=== PATIENT | male | born 1960 | race African-American/Black ===

== ENCOUNTER 2018-07-31 10:52 | Emergency (ER) | payer MEDICAID, SELFPAY ==
[~2018-07-31] VITALS: Ht 175.3 cm; Wt 90.0 kg
[2018-07-31] MEDS ORDERED: TETANUS, DIPHTHERIA, PERTUSSIS VAC/PF 0.5ML (>7YR OLD) IM ONE (12:15)
[2018-07-31] MEDS ORDERED: KETOROLAC 60MG/2ML VIAL IM ONE (12:15)
[2018-07-31] MEDS ORDERED: BACITRACIN ZINC OINT UDPKT TOP ONE (13:45)
[2018-07-31] MEDS ORDERED: LIDOCAINE HCL/PF 1% 10 MG/ML 5ML VIAL IJ ONE (13:45)
[2018-07-31] MEDS ORDERED: SULBACTAM NA IM NR ×4 (14:00)
[2018-07-31] MEDS ORDERED: AMPICILLIN SODIUM IM NR ×4 (14:00)
[2018-07-31 15:15] VITALS: BP 143/87
== END 2018-07-31 15:17 | disposition home or self-care (01) ==
LOC: ER 10:52
DX: S62.632B Displaced fracture of distal phalanx of right middle finger, initial encounter for open fracture (principal); I10 Essential (primary) hypertension; T14.8XXA Other injury of unspecified body region, initial encounter; F17.200 Nicotine dependence, unspecified, uncomplicated; W50.3XXA Accidental bite by another person, initial encounter; Y93.89 Activity, other specified; Y92.89 Other specified places as the place of occurrence of the external cause; Y99.8 Other external cause status
CPT/HCPCS: 12001; 73140; 90471; 90715; 96372; 99283; J0295; J1885; J3490; Z7610

== ENCOUNTER 2019-10-12 15:57 | Inpatient (IN) | payer MEDICAID ==
[~2019-10-12] VITALS: Ht 175.3 cm; Wt 96.4 kg
[2019-10-12] MEDS ORDERED: ONDANSETRON 4MG ODT PO ONE (17:30)
[2019-10-12 18:11] LABS: BASOPHILS % 0.4 % (0.0-2.0); EOSINOPHILS % 0.7 % (0.0-5.0); HEMATOCRIT. 45.7 % (42.0-52.0); LYMPHOCYTES % 13.3 % (20.0-50.0); MEAN CORPUSCULAR HEMOGLOBIN 27.9 pg (28.0-32.0); MEAN CORPUSCULAR VOLUME 85.1 fL (80.0-94.0); MEAN PLATELET VOLUME 9.9 fl (7.4-10.4); MONOCYTES % 8.7 % (2.0-8.0); NEUTROPHILS % 76.9 % (40.0-76.0); PLATELET 420 x1000/uL (130-400); RED BLOOD CELL COUNT 5.37 mill/uL (4.7-6.1); RED CELL DISTRIBUTION WIDTH 13.9 % (11.6-14.6)
[2019-10-12 18:14] LABS: CHLORIDE 94 mEq/L (98-107)
[2019-10-12] MEDS ORDERED: POTASSIUM CHLORIDE INJ 40 MEQ in DEXT 5% WATER 500 ML IV ONE (18:45)
[2019-10-12] MEDS ORDERED: SODIUM CHLORIDE 0.9% 1000ML BAG (SEPSIS BOLUS) IV ONE (18:45)
[2019-10-12] MEDS ORDERED: MAGNESIUM 2 G PREMIX 50 ML IV ONE (18:45)
[2019-10-12 19:03] LABS: PHOSPHORUS 4.1 mg/dL (2.5-4.9)
[2019-10-12 19:04] LABS: BETA HYDROXYBUTYRATE 7.7 mMol/L (0.0-0.3)
[2019-10-12 19:40] LABS: BG BASE EXCESS -13.8 mmol/L (-2.0-2.0); BG CARBOXYHEMOGLOBIN 0.7 % (0.5-1.5); BG DEOXYHEMOGLOBIN 2.4 % (0.0-5.0); BG FRACTION INSPIRED OXYGEN 28; BG HCO3 ACT 10.8 mmol/L (22.0-26.0); BG METHEMOGLOBIN 0.3 % (0.0-1.5); BG OXYGEN SATURATION 97.6 % (92.0-98.5); BG OXYHEMOGLOBIN 96.6 % (94.0-97.0); BG PCO2 23.4 mmHg (35.0-45.0); BG PH 7.281 (7.350-7.450); BG PO2 105.3 mmHg (75.0-100.0); BG SAMPLE SITE RIGHT RADIAL; BG TOTAL HEMOGLOBIN 15.4 g/dL (12.0-18.0); BG VENT MODE NASAL CANNULA
[2019-10-12 19:53] LABS: CLARITY URINE CLOUDY (CLEAR); COLOR URINE YELLOW (YELLOW); KETONES URINE 3+ (NEGATIVE); LEUKOCYTE ESTERASE URINE 2+ (NEGATIVE); NITRITE URINE NEGATIVE (NEGATIVE); OCCULT BLOOD URINE 3+ (NEGATIVE); PROTEIN URINE 1+ (NEGATIVE); SPECIFIC GRAVITY URINE 1.031 (1.005-1.030); UROBILINOGEN URINE 0.2 E.U./dL (0.2-1.0)
[2019-10-12] MEDS ORDERED: SODIUM CHLORIDE 0.9% 1,000 ML IV SCH (22:31)
[2019-10-12] MEDS ORDERED: INSULIN REGULAR (DRIP) 100 UNITS in SODIUM CHLORIDE 0.9% 100 ML IV SCH (22:45)
[2019-10-12] MEDS ORDERED: ONDANSETRON HCL 4MG/2ML INJ IV PRN (22:45)
[2019-10-12] MEDS ORDERED: IPRATROPIUM/ALBUTEROL 0.5-3(2.5)MG/3ML NEB NEB PRN (22:45)
[2019-10-12] MEDS ORDERED: CEFTRIAXONE 1 G PREMIX 50 ML IV SCH (23:15)
[2019-10-13] VITALS (33 sets, daily range): BP systolic 122–165; BP diastolic 58–99
[2019-10-13] MEDS ORDERED: GEMF600T5 MT (04:25)
[2019-10-13] MEDS ORDERED: HYDR12.54 MT (04:29)
[2019-10-13] MEDS ORDERED: METF-414 MT (04:29)
[2019-10-13] MEDS ORDERED: ERGO500013 PO (04:29)
[2019-10-13] MEDS ORDERED: ATOR-2 MT (04:29)
[2019-10-13] MEDS ORDERED: IBUP-2029 MT (04:30)
[2019-10-13] MEDS: DEXT 5%/0.9% NACL 1,000 ML IV SCH ×2 (04:37→09:43)
[2019-10-13 05:42] LABS: BASOPHILS % 0.3 % (0.0-2.0); EOSINOPHILS % 1.3 % (0.0-5.0); HEMATOCRIT. 39.7 % (42.0-52.0); HEMOGLOBIN. 13.2 g/dL (14.0-18.0); LYMPHOCYTES % 18.4 % (20.0-50.0); MEAN CORPUSCULAR HEMOGLOBIN 27.8 pg (28.0-32.0); MEAN CORPUSCULAR VOLUME 83.6 fL (80.0-94.0); MEAN PLATELET VOLUME 9.2 fl (7.4-10.4); MONOCYTES % 9.8 % (2.0-8.0); NEUTROPHILS % 70.2 % (40.0-76.0); PLATELET 323 x1000/uL (130-400); RED BLOOD CELL COUNT 4.75 mill/uL (4.7-6.1); RED CELL DISTRIBUTION WIDTH 13.9 % (11.6-14.6)
[2019-10-13 05:47] LABS: CHLORIDE 112 mEq/L (98-107)
[2019-10-13 05:52] LABS: LDL CHOLESTEROL 91 mg/dL (5-100); PHOSPHORUS 1.5 mg/dL (2.5-4.9)
[2019-10-13 05:53] LABS: HDL CHOLESTEROL 49 mg/dL (40-59)
[2019-10-13 05:54] LABS: CREATINE KINASE 89 IU/L (39-308)
[2019-10-13 05:57] LABS: CREATINE KINASE MB FRACTION 1.8 ng/mL (0.5-3.6)
[2019-10-13] MEDS: DEXT 5%/0.9% NACL KCL 20MEQ/L 1,000 ML IV SCH ×4 (08:12→23:11)
[2019-10-13] MEDS: ENOXAPARIN 40MG/0.4ML SYR SUBCUT SCH (08:13)
[2019-10-13] MEDS ORDERED: DEXTROSE 50% WATER 50ML SYRINGE IV PRN ×2 (08:30)
[2019-10-13 08:32] LABS: CHLORIDE 115 mEq/L (98-107)
[2019-10-13] MEDS: BLOOD SUGAR DIAGNOSTIC STRIP TEST SCH ×15 (09:39→23:00)
[2019-10-13] MEDS: INSULIN REGULAR (DRIP) 100 UNITS in SODIUM CHLORIDE 0.9% 99 ML IV SCH ×2 (10:12→23:10)
[2019-10-13] MEDS ORDERED: CLONIDINE 0.1MG TABLET PO PRN (10:15)
[2019-10-13] MEDS: HYDROCODONE/ACETAMINOPHEN 5/325MG TABLET PO PRN (10:32)
[2019-10-13 12:33] LABS: CHLORIDE 116 mEq/L (98-107)
[2019-10-13] MEDS ORDERED: POTASSIUM PHOS,M-BASIC-D-BASIC 30 MMOL in DEXT 5% WATER 500 ML IV ONE (17:00)
[2019-10-13 17:22] LABS: CHLORIDE 116 mEq/L (98-107)
[2019-10-13 17:29] LABS: PHOSPHORUS 1.3 mg/dL (2.5-4.9)
[2019-10-13 17:31] LABS: CREATINE KINASE 139 IU/L (39-308)
[2019-10-13 17:32] LABS: CREATINE KINASE MB FRACTION 1.9 ng/mL (0.5-3.6)
[2019-10-13] MEDS: CEFTRIAXONE 1,000 MG in DEXTROSE 5% WATER 50 ML IV SCH (21:06)
[2019-10-13] MEDS ORDERED: CEFTRIAXONE 1 G PREMIX 50 ML IV SCH (22:00)
[2019-10-14] VITALS (32 sets, daily range): BP systolic 103–165; BP diastolic 54–100
[2019-10-14] MEDS: BLOOD SUGAR DIAGNOSTIC STRIP TEST SCH ×16 (01:00→20:16)
[2019-10-14 05:59] LABS: CHLORIDE 119 mEq/L (98-107)
[2019-10-14 06:04] LABS: PHOSPHORUS 1.3 mg/dL (2.5-4.9)
[2019-10-14 06:07] LABS: T4 FREE 1.09 ng/dL (0.76-1.46)
[2019-10-14] MEDS: DEXT 5%/0.9% NACL KCL 20MEQ/L 1,000 ML IV SCH ×2 (06:19→08:29)
[2019-10-14] MEDS: ENOXAPARIN 40MG/0.4ML SYR SUBCUT SCH (08:29)
[2019-10-14] MEDS: HYDROCODONE/ACETAMINOPHEN 5/325MG TABLET PO PRN (08:31)
[2019-10-14] MEDS ORDERED: POTASSIUM-SODIUM PHOSPHATE POWDER PACKET PO NR (13:30)
[2019-10-14] MEDS ORDERED: INSULIN LISPRO 100 UNITS/ML SUBCUT SCH (13:30)
[2019-10-14] MEDS: INSULIN LISPRO 100 UNITS/ML SUBCUT SCH ×3 (14:25→18:04)
[2019-10-14] MEDS ORDERED: INSULIN GLARGINE UD 100 UNITS/ML SYR SUBCUT NR ×2 (15:30→23:00)
[2019-10-14] MEDS: INSULIN LISPRO (LOW DOSE) 100 UNITS/ML SUBCUT SCH (18:04)
[2019-10-14 18:55] LABS: CHLORIDE 114 mEq/L (98-107)
[2019-10-14] MEDS: CEFTRIAXONE 1,000 MG in DEXTROSE 5% WATER 50 ML IV SCH (20:14)
[2019-10-15 01:20] VITALS: BP 156/88
[2019-10-15] MEDS: BLOOD SUGAR DIAGNOSTIC STRIP TEST SCH ×5 (03:02→21:18)
[2019-10-15 04:00] VITALS: BP 151/91
[2019-10-15] MEDS: INSULIN LISPRO 100 UNITS/ML SUBCUT SCH ×3 (06:55→18:42)
[2019-10-15 07:57] LABS: BASOPHILS % 0.5 % (0.0-2.0); EOSINOPHILS % 2.7 % (0.0-5.0); HEMATOCRIT. 34.1 % (42.0-52.0); HEMOGLOBIN. 11.4 g/dL (14.0-18.0); LYMPHOCYTES % 12.3 % (20.0-50.0); MEAN CORPUSCULAR HEMOGLOBIN 27.7 pg (28.0-32.0); MEAN CORPUSCULAR VOLUME 82.8 fL (80.0-94.0); MEAN PLATELET VOLUME 8.8 fl (7.4-10.4); MONOCYTES % 11.3 % (2.0-8.0); NEUTROPHILS % 73.2 % (40.0-76.0); PLATELET 260 x1000/uL (130-400); RED BLOOD CELL COUNT 4.11 mill/uL (4.7-6.1); RED CELL DISTRIBUTION WIDTH 14.1 % (11.6-14.6)
[2019-10-15 08:00] VITALS: BP 141/82
[2019-10-15] MEDS: ENOXAPARIN 40MG/0.4ML SYR SUBCUT SCH (08:12)
[2019-10-15] MEDS: INSULIN LISPRO (LOW DOSE) 100 UNITS/ML SUBCUT SCH ×3 (08:14→17:07)
[2019-10-15] MEDS: HYDROCODONE/ACETAMINOPHEN 5/325MG TABLET PO PRN ×2 (08:30→18:46)
[2019-10-15] MEDS ORDERED: POTASSIUM PHOS,M-BASIC-D-BASIC 15 MMOL in DEXT 5% WATER 245 ML IV NR (09:30)
[2019-10-15] MEDS: INSULIN GLARGINE UD 100 UNITS/ML SYR SUBCUT SCH (11:31)
[2019-10-15] MEDS: SODIUM CHL 0.45% + KCL 20MEQ/L 1,000 ML IV SCH ×2 (14:36→22:39)
[2019-10-15 16:00] VITALS: BP 124/72
[2019-10-15 20:00] VITALS: BP 137/79
[2019-10-15] MEDS: CEFTRIAXONE 1,000 MG in DEXTROSE 5% WATER 50 ML IV SCH (21:18)
[2019-10-15] MEDS ORDERED: INSULIN GLARGINE UD 100 UNITS/ML SYR SUBCUT NR (22:00)
[2019-10-16] VITALS: BP 124/79
[2019-10-16] MEDS: BLOOD SUGAR DIAGNOSTIC STRIP TEST SCH ×5 (03:16→20:27)
[2019-10-16 04:00] VITALS: BP 132/76
[2019-10-16 05:56] LABS: CHLORIDE 109 mEq/L (98-107)
[2019-10-16 06:11] LABS: BASOPHILS % 0.4 % (0.0-2.0); HEMATOCRIT. 32.8 % (42.0-52.0); LYMPHOCYTES % 18.7 % (20.0-50.0); MEAN CORPUSCULAR HEMOGLOBIN 27.9 pg (28.0-32.0); MEAN CORPUSCULAR VOLUME 82.8 fL (80.0-94.0); MEAN PLATELET VOLUME 8.7 fl (7.4-10.4); NEUTROPHILS % 65.9 % (40.0-76.0); PLATELET 261 x1000/uL (130-400); RED BLOOD CELL COUNT 3.96 mill/uL (4.7-6.1); RED CELL DISTRIBUTION WIDTH 14.1 % (11.6-14.6)
[2019-10-16] MEDS: INSULIN LISPRO (LOW DOSE) 100 UNITS/ML SUBCUT SCH ×3 (06:23→17:20)
[2019-10-16 08:00] VITALS: BP 138/78
[2019-10-16] MEDS ORDERED: POTASSIUM CHLORIDE 20MEQ TABLET SR PO NR (09:00)
[2019-10-16 09:23] LABS: PHOSPHORUS 3.2 mg/dL (2.5-4.9)
[2019-10-16] MEDS: INSULIN GLARGINE UD 100 UNITS/ML SYR SUBCUT SCH (09:29)
[2019-10-16] MEDS: INSULIN LISPRO 100 UNITS/ML SUBCUT SCH ×2 (09:30→12:20)
[2019-10-16] MEDS: ENOXAPARIN 40MG/0.4ML SYR SUBCUT SCH (09:35)
[2019-10-16] MEDS: HYDROCODONE/ACETAMINOPHEN 5/325MG TABLET PO PRN (09:35)
[2019-10-16 10:17] VITALS: BP 138/78
[2019-10-16] MEDS: SODIUM CHL 0.45% + KCL 20MEQ/L 1,000 ML IV SCH ×2 (12:01→13:29)
[2019-10-16 16:11] VITALS: BP 125/72
[2019-10-16] MEDS ORDERED: INSULIN LISPRO 100 UNITS/ML SUBCUT NR (18:45)
[2019-10-16 20:00] VITALS: BP 138/73
[2019-10-16] MEDS: CEFTRIAXONE 1,000 MG in DEXTROSE 5% WATER 50 ML IV SCH (20:50)
[2019-10-17] VITALS: BP 138/77
[2019-10-17] MEDS: SODIUM CHL 0.45% + KCL 20MEQ/L 1,000 ML IV SCH ×2 (00:40→15:01)
[2019-10-17] MEDS: BLOOD SUGAR DIAGNOSTIC STRIP TEST SCH ×3 (03:21→12:20)
[2019-10-17 03:30] VITALS: BP 124/80
[2019-10-17] MEDS: INSULIN LISPRO (LOW DOSE) 100 UNITS/ML SUBCUT SCH ×2 (07:20→13:30)
[2019-10-17 08:00] VITALS: BP 134/77
[2019-10-17 09:01] LABS: BASOPHILS % 0.5 % (0.0-2.0); EOSINOPHILS % 3.5 % (0.0-5.0); HEMATOCRIT. 32.3 % (42.0-52.0); HEMOGLOBIN. 10.9 g/dL (14.0-18.0); LYMPHOCYTES % 20.3 % (20.0-50.0); MEAN CORPUSCULAR HEMOGLOBIN 27.9 pg (28.0-32.0); MEAN CORPUSCULAR VOLUME 82.7 fL (80.0-94.0); MEAN PLATELET VOLUME 7.8 fl (7.4-10.4); MONOCYTES % 13.7 % (2.0-8.0); PLATELET 273 x1000/uL (130-400); RED BLOOD CELL COUNT 3.91 mill/uL (4.7-6.1); RED CELL DISTRIBUTION WIDTH 14.2 % (11.6-14.6)
[2019-10-17 09:09] LABS: CHLORIDE 110 mEq/L (98-107)
[2019-10-17 09:14] LABS: PHOSPHORUS 2.9 mg/dL (2.5-4.9)
[2019-10-17] MEDS: ENOXAPARIN 40MG/0.4ML SYR SUBCUT SCH (09:42)
[2019-10-17] MEDS: HYDROCODONE/ACETAMINOPHEN 5/325MG TABLET PO PRN (09:42)
[2019-10-17] MEDS: INSULIN LISPRO 100 UNITS/ML SUBCUT SCH ×2 (09:44→13:30)
[2019-10-17] MEDS: INSULIN GLARGINE UD 100 UNITS/ML SYR SUBCUT SCH (09:45)
[2019-10-17 12:00] VITALS: BP 137/84
[2019-10-17] MEDS ORDERED: LANTUSUD SUBCUT (15:27)
[2019-10-17] MEDS ORDERED: INSLIS SUBCUT (15:27)
[2019-10-17 16:48] VITALS: BP 137/84
[2019-10-17] MEDS ORDERED: ENOXAPARIN 30MG/0.3ML SYR SUBCUT SCH (21:00)
== END 2019-10-17 17:25 | disposition home health service (06) | DRG 420 ==
LOC: ER 15:57 → MICUSO 19:50 → EDBEDREQTM 19:52 → EDBEDREQ 19:52 → ENRESERV 22:08 → MICUNO 23:11 → 6WST 10-15 01:30
PROVIDERS: ADMIT Internal Medicine; ATTEND Internal Medicine
DX: E11.10 Type 2 diabetes mellitus with ketoacidosis without coma (principal); E87.1 Hypo-osmolality and hyponatremia; E83.39 Other disorders of phosphorus metabolism; E87.6 Hypokalemia; N17.9 Acute kidney failure, unspecified; N39.0 Urinary tract infection, site not specified; I10 Essential (primary) hypertension; E78.1 Pure hyperglyceridemia; E66.3 Overweight; F17.210 Nicotine dependence, cigarettes, uncomplicated; Z83.3 Family history of diabetes mellitus; Z68.31 Body mass index [BMI] 31.0-31.9, adult; N17.0 Acute kidney failure with tubular necrosis
CPT/HCPCS: 36415; 36600; 71045; 80048; 80053; 80061; 81003; 82010; 82375; 82533; 82550; 82553; 82805; 82962; 83036; 83605; 83735; 84100; 84439; 84443; 84484; 84681; 85025; 93005; 93970; 96365; 99291; J0696; J1650; J1815; J3475; J3480; J3490; J7030; J7042; J7050; J7060; Q0162

== ENCOUNTER 2022-01-11 08:53 | Emergency (ER) | payer BC, MEDICAID ==
[~2022-01-11] VITALS: Ht 175.3 cm; Wt 100.0 kg
[~2022-01-11 08:53] MED LIST: ATOR-2 MT; ERGO1250 PO; HYDR12.54 MT; INSLIS SUBCUT; LANTUSUD SUBCUT
[2022-01-11 09:13] VITALS: BP 154/94
[2022-01-11 10:12] LABS: CLARITY URINE TURBID (CLEAR); COLOR URINE ORANGE (YELLOW); KETONES URINE NEGATIVE (NEGATIVE); LEUKOCYTE ESTERASE URINE 2+ (NEGATIVE); NITRITE URINE NEGATIVE (NEGATIVE); OCCULT BLOOD URINE 3+ (NEGATIVE); PH URINE 5.5 (4.5-8.0); PROTEIN URINE 3+ (NEGATIVE); SPECIFIC GRAVITY URINE 1.029 (1.005-1.030); UROBILINOGEN URINE 0.2 E.U./dL (0.2-1.0)
[2022-01-11] MEDS ORDERED: CEFP200T13 MT (11:06)
== END 2022-01-11 11:47 | disposition home or self-care (01) ==
LOC: ER 08:53
DX: N39.0 Urinary tract infection, site not specified (principal); I12.9 Hypertensive chronic kidney disease with stage 1 through stage 4 chronic kidney disease, or unspecified chronic kidney disease; E11.22 Type 2 diabetes mellitus with diabetic chronic kidney disease; N18.9 Chronic kidney disease, unspecified; Z79.4 Long term (current) use of insulin
CPT/HCPCS: 81003; 99283

== ENCOUNTER 2023-07-19 10:21 | Emergency (ER) | payer MEDICARE, MEDICAID ==
[~2023-07-19] VITALS: Ht 175.3 cm; Wt 105.0 kg
[~2023-07-19 10:21] MED LIST changes: +CEFP200T13 MT
[2023-07-19 10:32] VITALS: TEMP 97.8; O2SAT 98
[2023-07-19 11:39] LABS: BASOPHILS % 0.3 % (0.0-2.0); EOSINOPHILS % 1.6 % (0.0-5.0); HEMOGLOBIN. 15.9 g/dL (14.0-18.0); LYMPHOCYTES % 18.6 % (20.0-50.0); MEAN CORPUSCULAR HEMOGLOBIN 28.4 pg (28.0-32.0); MEAN CORPUSCULAR HGB CONC 34.5 g/dL (31.0-37.0); MEAN CORPUSCULAR VOLUME 82.3 fL (80.0-94.0); MEAN PLATELET VOLUME 8.3 fl (7.4-10.4); MONOCYTES % 6.9 % (2.0-8.0); NEUTROPHILS % 72.6 % (40.0-76.0); PLATELET 263 x1000/uL (130-400); RED BLOOD CELL COUNT 5.59 mill/uL (4.7-6.1); RED CELL DISTRIBUTION WIDTH 15.6 % (11.6-14.6); WHITE BLOOD COUNT 8.5 x1000/uL (4.5-11.0)
[2023-07-19 11:51] LABS: CREATININE 1.5 mg/dL (0.6-1.3)
[2023-07-19 11:54] LABS: POTASSIUM 2.8 mEq/L (3.5-5.1)
[2023-07-19] MEDS: OXYCODONE HCL/ACETAMINOPHEN 5/325MG TABLET PO ONE (12:04)
[2023-07-19] MEDS: POTASSIUM CHLORIDE 20MEQ/PACKET PO ONE (12:45)
[2023-07-19] MEDS ORDERED: LEVO-65 PO (13:29)
[2023-07-19] MEDS ORDERED: T3 PO (13:29)
[2023-07-19 15:32] LABS: CLARITY URINE CLOUDY (CLEAR); COLOR URINE YELLOW (YELLOW); GLUCOSE URINE 3+ (NEGATIVE); KETONES URINE NEGATIVE (NEGATIVE); LEUKOCYTE ESTERASE URINE NEGATIVE (NEGATIVE); NITRITE URINE NEGATIVE (NEGATIVE); OCCULT BLOOD URINE 1+ (NEGATIVE); PH URINE 5.5 (4.5-8.0); PROTEIN URINE TRACE (NEGATIVE); UROBILINOGEN URINE 0.2 E.U./dL (0.2-1.0)
[2023-07-19 15:53] VITALS: BP 136/69; PULSE 79; RESP 14
[2023-07-19 16:07] LABS: SQUAMOUS EPITHELIAL CELL URINE 1+ /lpf (RARE/1+)
[2023-07-19 16:08] LABS: RBC URINE 0-2 /hpf (0-2); WBC URINE 25-50 /hpf (0-2)
[2023-07-19 16:09] LABS: BACTERIA URINE TRACE
== END 2023-07-19 15:55 | disposition home or self-care (01) ==
LOC: ER 10:21
DX: R10.2 Pelvic and perineal pain (principal); R93.41 Abnormal radiologic findings on diagnostic imaging of renal pelvis, ureter, or bladder; E11.9 Type 2 diabetes mellitus without complications; I10 Essential (primary) hypertension; Z87.442 Personal history of urinary calculi
CPT/HCPCS: 36415; 76770; 80048; 81003; 85025; 99284